=== PATIENT | male | born 1950 | race Caucasian/White ===

== ENCOUNTER → 2020-05-31 | Outpatient (CLI) | payer MEDICARE, OTHER ==
--- NOTE | 2020-05-31 12:52 | REP ---
RENAL ULTRASOUND WITH DUPLEX DOPPLER RENAL ARTERY EVALUATION: Real-time ultrasound evaluation of the kidneys is performed. The kidneys are normal size and echotexture, right kidney measuring 9.9 x 4.5 x 4.6 cm and left kidney 11.1 x 4.0 x 4.8 cm. There is no hydronephrosis bilaterally. No renal mass is seen. Real-time ultrasound evaluation and duplex Doppler interrogation of the renal arteries is performed bilaterally. Peak systolic velocity of the abdominal aorta at the level of the renal artery is 79.9 cm/s. Peak systolic velocity of the main right renal artery proximally is 87.5 cm/s. Renal to aortic ratio is 1.1. Resistive indices are measured in the upper, mid and lower thirds of the right kidney and range between 0.55 and 0.62. Acceleration times range between 0.06 to 0.11. Peak systolic velocity of a left renal artery proximally is 57.9 cm/s. Renal to aortic ratio is 0.7. Resistive indices left kidney range between 0.57 and 0.66. Acceleration times range between 0.04 and 0.06. Bilateral parvus tardus waveforms are seen, more so on the right than on the left, suggesting vessel narrowing. However, there is no direct evidence of renal artery stenosis. IMPRESSION: Bilateral tardus parvus waveforms suggest some degree of arterial narrowing. However, there is no direct evidence of significant renal artery stenosis bilaterally. Electronically Signed by Danis Bertrand MD 05/31/2020 03:31 P
== END ==
LOC: M RAD 07:22
PROVIDERS: ATTEND Family Medicine
DX: I70.1 Atherosclerosis of renal artery (principal); I15.1 Hypertension secondary to other renal disorders

== ENCOUNTER → 2020-07-22 | Outpatient (CLI) | payer MEDICARE, OTHER ==
--- NOTE | 2020-08-23 10:53 | REP ---
VISCERAL ARTERIAL DOPPLER SONOGRAPHY HISTORY: Gastroparesis with pain after eating. TECHNIQUE: Pre- and sequential postprandial Doppler assessment is performed of the proximal and mid superior mesenteric artery. Celiac axis and aorta are sampled as well. Two cans of Ensure were administered orally as a challenge meal. FINDINGS: Peak systolic flow velocity in the abdominal aorta just above the celiac axis is normal at 78 cm/s. PSV in the celiac axis is normal at 81 cm/s, EDV 19. SMA VELOCITY CHART: PROXIMAL CM/S MID CM/S Baseline (before meal) PSV 150; EDV 25 PSV 181; EDV 30 10 minutes postmeal challenge PSV 136; EDV 37 PSV 247; EDV 60 20 minutes postmeal challenge PSV 183; EDV 52 PSV 258; EDV 70 30 minutes postmeal challenge PSV 131; EDV 36 PSV 234; EDV 57 40 minutes postmeal challenge PSV 139; EDV 30 PSV 193; EDV 40 IMPRESSION: Normal physiologic Doppler response postmeal challenge. MTDD
== END ==
LOC: M RAD 06:07
PROVIDERS: ATTEND Specialist
DX: K31.84 Gastroparesis (principal); R10.31 Right lower quadrant pain

== ENCOUNTER → 2020-09-07 | Outpatient (REF) | payer MEDICARE, OTHER ==
[2020-09-15 19:08] LABS: CREATININE,RANDOM URINE 66.2 mg/dL (Not Estab.); DOPAMINE PLASMA <30 pg/mL (0-48); EPINEPHRINE PLASMA <15 pg/mL (0-62); METANEPHRINE PLASMA 28.4 pg/mL (0.0-88.0); NOREPINEPHRINE PLASMA 445 pg/mL (0-874); NORMETANEPHRINE PLASMA 91.7 pg/mL (0.0-191.8); URINE METANEPHR/CREAT RATIO 0.3 (0.0-1.0); URINE METANEPHRINES RANDOM 46 ug/L (Undefined); URINE NORMETANEPHRINES RANDOM 124 ug/L (Undefined)
== END ==
LOC: M LAB REF 17:05
PROVIDERS: ATTEND Internal Medicine Nephrology
DX: E03.9 Hypothyroidism, unspecified (principal); I12.9 Hypertensive chronic kidney disease with stage 1 through stage 4 chronic kidney disease, or unspecified chronic kidney disease; N18.2 Chronic kidney disease, stage 2 (mild)

== ENCOUNTER → 2020-09-22 | Outpatient (REF) | payer MEDICARE, OTHER ==
[2020-09-29 10:08] LABS: VANILLYLMANDELIC ACID,URINE 24 6.8 mg/24 hr (0.0-7.5)
== END ==
LOC: M LAB REF 17:08
PROVIDERS: ATTEND Internal Medicine Nephrology
DX: E03.9 Hypothyroidism, unspecified (principal); I12.9 Hypertensive chronic kidney disease with stage 1 through stage 4 chronic kidney disease, or unspecified chronic kidney disease; N18.2 Chronic kidney disease, stage 2 (mild)

== ENCOUNTER → 2021-06-20 | Outpatient (REF) | payer MEDICARE, OTHER | LOC: M LAB REF 17:15 | PROVIDERS: ATTEND Internal Medicine Nephrology | DX: E11.9 Type 2 diabetes mellitus without complications (principal) ==

== ENCOUNTER → 2023-06-12 | Day surgery (SDC) | payer MEDICARE, OTHER ==
[~2023-06-12] VITALS: Ht 177.8 cm; Wt 87.7 kg
[~2023-06-12] MED LIST: CLON-412 PO; ECOT81TA5 PO; HYDR-3911 PO; JARD1TAB3 PO; LIDOCAINE 2% 100MG/5ML SDV (FOR ANES.) As Ordered ONE; METO50TA7 PO; NS 1,000 ML IV ONE; SIMETHICONE 40MG/0.6ML DROPS 30ML As Ordered ONE; TAMS1CAP17 PO; VITA500T40 PO; propofoL 200 MG/20 ML VIAL As Ordered ONE
[2023-06-12 08:48] VITALS: TEMP 97.8
[2023-06-12 09:10] VITALS: BP 133/77; O2SAT 99
== END | disposition home or self-care (01) ==
LOC: M OPP 06:37
PROVIDERS: ATTEND Internal Medicine Gastroenterology
DX: K64.4 Residual hemorrhoidal skin tags (principal); K64.8 Other hemorrhoids; K52.9 Noninfective gastroenteritis and colitis, unspecified; K57.30 Diverticulosis of large intestine without perforation or abscess without bleeding; K44.9 Diaphragmatic hernia without obstruction or gangrene; K21.00 Gastro-esophageal reflux disease with esophagitis, without bleeding; K29.70 Gastritis, unspecified, without bleeding; K22.70 Barrett's esophagus without dysplasia; Z79.1 Long term (current) use of non-steroidal anti-inflammatories (NSAID); Z79.51 Long term (current) use of inhaled steroids; Z88.6 Allergy status to analgesic agent

== ENCOUNTER → 2023-10-02 | Outpatient (CLI) | payer MEDICARE, OTHER ==
[~2023-10-02] MED LIST changes: +BICA50TA9 PO; +HYDR50TA70 PO; +LEVO100T5 PO; -LIDOCAINE 2% 100MG/5ML SDV (FOR ANES.) As Ordered ONE; -NS 1,000 ML IV ONE; +PANT40TA29 PO; -SIMETHICONE 40MG/0.6ML DROPS 30ML As Ordered ONE; -propofoL 200 MG/20 ML VIAL As Ordered ONE
== END ==
LOC: M ONCR 12:32
PROVIDERS: ATTEND General Practice
DX: C61 Malignant neoplasm of prostate (principal); Z71.2 Person consulting for explanation of examination or test findings; Z79.84 Long term (current) use of oral hypoglycemic drugs; Z79.890 Hormone replacement therapy; Z79.899 Other long term (current) drug therapy; Z80.0 Family history of malignant neoplasm of digestive organs; Z80.3 Family history of malignant neoplasm of breast; Z88.8 Allergy status to other drugs, medicaments and biological substances

== ENCOUNTER → 2023-10-16 | Outpatient (CLI) | payer MEDICARE, OTHER | LOC: M WHC 11:23 | PROVIDERS: ATTEND Nurse Practitioner Family | DX: C61 Malignant neoplasm of prostate (principal) ==

== ENCOUNTER → 2023-10-24 | Outpatient (CLI) | payer MEDICARE, OTHER ==
[~2023-10-24] VITALS: Ht 175.3 cm; Wt 88.1 kg
[~2023-10-24] MED LIST changes: +CIPR750T2 PO; +LIDOCAINE 2% MDV 20ML VIAL XX ONE; +LORA1TAB23 PO
[2023-10-24 14:16] VITALS: BP 130/89; O2SAT 97
[2023-10-24 14:47] VITALS: BP 138/80; O2SAT 98
== END ==
LOC: M ONCR 13:31
PROVIDERS: ATTEND General Practice
DX: C61 Malignant neoplasm of prostate (principal)
CPT/HCPCS: 55874; 55876; A4648; C1889

== ENCOUNTER 2023-11-23 09:34 | Outpatient (RCR) | payer MEDICARE, OTHER ==
[~2023-11-23 09:34] MED LIST changes: -LIDOCAINE 2% MDV 20ML VIAL XX ONE
[2023-11-27] MEDS ORDERED: PYRI1TAB5 PO (16:01)
[2023-12-03] MEDS ORDERED: PYRI1TAB5 PO (13:11)
== END 2023-11-25 ==
LOC: M ONCR 09:34
PROVIDERS: ATTEND General Practice
DX: Z51.0 Encounter for antineoplastic radiation therapy (principal); C61 Malignant neoplasm of prostate

== ENCOUNTER 2024-01-03 09:38 | Outpatient (RCR) | payer MEDICARE, OTHER ==
[~2024-01-03 09:38] MED LIST changes: -HYDR-3911 PO; +HYDR50TA46 PO; +PYRI1TAB5 PO
== END 2024-01-24 ==
LOC: M ONCR 09:38
PROVIDERS: ATTEND General Practice
DX: Z51.0 Encounter for antineoplastic radiation therapy (principal); C61 Malignant neoplasm of prostate

== ENCOUNTER 2024-03-04 10:31 | Day surgery (SDC) | payer MEDICARE, OTHER ==
[~2024-03-04] VITALS: Ht 177.8 cm; Wt 89.7 kg
[~2024-03-04 10:31] MED LIST changes: +FIRM80IN5 SC; +LEVO88TA3 PO
[2024-03-04] MEDS ORDERED: propofoL 200 MG/20 ML VIAL As Ordered ONE (10:46)
[2024-03-04] MEDS: NS 1,000 ML IV ONE (10:48)
[2024-03-04 11:56] VITALS: TEMP 97.1
[2024-03-04 12:18] VITALS: BP 120/62; O2SAT 96
== END 2024-03-04 12:24 | disposition home or self-care (01) ==
LOC: M OPP 10:31
PROVIDERS: ATTEND Internal Medicine Gastroenterology
DX: K21.00 Gastro-esophageal reflux disease with esophagitis, without bleeding (principal); K31.A0 Gastric intestinal metaplasia, unspecified; K22.70 Barrett's esophagus without dysplasia; K22.2 Esophageal obstruction; K44.9 Diaphragmatic hernia without obstruction or gangrene; R13.10 Dysphagia, unspecified; E11.9 Type 2 diabetes mellitus without complications; G47.30 Sleep apnea, unspecified; Z99.89 Dependence on other enabling machines and devices; I25.10 Atherosclerotic heart disease of native coronary artery without angina pectoris; Z95.0 Presence of cardiac pacemaker; Z79.02 Long term (current) use of antithrombotics/antiplatelets; Z79.84 Long term (current) use of oral hypoglycemic drugs; Z79.890 Hormone replacement therapy; Z79.899 Other long term (current) drug therapy; Z88.8 Allergy status to other drugs, medicaments and biological substances

== ENCOUNTER → 2024-04-02 | Outpatient (CLI) | payer MEDICARE, OTHER ==
[~2024-04-02] MED LIST changes: +MESA50SU PR
== END ==
LOC: M ONCR 09:17
PROVIDERS: ATTEND General Practice
DX: C61 Malignant neoplasm of prostate (principal); R19.7 Diarrhea, unspecified; R10.31 Right lower quadrant pain; R10.32 Left lower quadrant pain; Z71.2 Person consulting for explanation of examination or test findings; Z79.818 Long term (current) use of other agents affecting estrogen receptors and estrogen levels; Z79.84 Long term (current) use of oral hypoglycemic drugs; Z79.899 Other long term (current) drug therapy; Z88.8 Allergy status to other drugs, medicaments and biological substances; Z92.3 Personal history of irradiation

== ENCOUNTER → 2024-07-03 | Outpatient (CLI) | payer MEDICARE, OTHER ==
[~2024-07-03] MED LIST changes: +BICA50TA4 PO; -BICA50TA9 PO
== END ==
LOC: M ONCR 09:39
PROVIDERS: ATTEND General Practice
DX: C61 Malignant neoplasm of prostate (principal); R30.0 Dysuria; Z79.818 Long term (current) use of other agents affecting estrogen receptors and estrogen levels; Z92.3 Personal history of irradiation; Z88.1 Allergy status to other antibiotic agents; Z79.84 Long term (current) use of oral hypoglycemic drugs; Z79.899 Other long term (current) drug therapy

== ENCOUNTER 2025-04-02 11:27 | Day surgery (SDC) | payer MEDICARE, OTHER ==
[~2025-04-02] VITALS: Ht 177.8 cm; Wt 84.4 kg
[~2025-04-02 11:27] MED LIST changes: +METF500T13 PO; +ROSU40TA81 PO; +SYNT125T PO; +VITA100093 PO; +propofoL 200 MG/20 ML VIAL As Ordered ONE
[2025-04-02] MEDS ORDERED: ePHEDrine SULFATE 25 MG/5 ML(5MG/ML) SYRINGE As Ordered ONE (13:43)
[2025-04-02 14:15] VITALS: TEMP 97.4
[2025-04-02 14:34] VITALS: BP 161/94; O2SAT 96
== END 2025-04-02 14:40 | disposition home or self-care (01) ==
LOC: M OPP 11:27
PROVIDERS: ATTEND Surgery
DX: Z12.11 Encounter for screening for malignant neoplasm of colon (principal); D12.6 Benign neoplasm of colon, unspecified; K57.30 Diverticulosis of large intestine without perforation or abscess without bleeding; K64.2 Third degree hemorrhoids; K22.70 Barrett's esophagus without dysplasia; K44.9 Diaphragmatic hernia without obstruction or gangrene; K22.2 Esophageal obstruction; I25.10 Atherosclerotic heart disease of native coronary artery without angina pectoris; I10 Essential (primary) hypertension; E78.00 Pure hypercholesterolemia, unspecified; E11.9 Type 2 diabetes mellitus without complications; E03.9 Hypothyroidism, unspecified; G47.33 Obstructive sleep apnea (adult) (pediatric); Z99.89 Dependence on other enabling machines and devices; Z86.73 Personal history of transient ischemic attack (TIA), and cerebral infarction without residual deficits; Z85.46 Personal history of malignant neoplasm of prostate; Z92.21 Personal history of antineoplastic chemotherapy; Z92.3 Personal history of irradiation; Z88.8 Allergy status to other drugs, medicaments and biological substances; Z79.84 Long term (current) use of oral hypoglycemic drugs; Z79.890 Hormone replacement therapy; Z79.899 Other long term (current) drug therapy
CPT/HCPCS: 43249; 45380; 88305; A4649

== ENCOUNTER → 2025-07-03 | Outpatient (CLI) | payer MEDICARE, OTHER ==
[~2025-07-03] MED LIST changes: -propofoL 200 MG/20 ML VIAL As Ordered ONE
== END ==
LOC: M ONCR 09:13
PROVIDERS: ATTEND General Practice
DX: C61 Malignant neoplasm of prostate (principal); Z79.818 Long term (current) use of other agents affecting estrogen receptors and estrogen levels; Z79.899 Other long term (current) drug therapy; Z92.3 Personal history of irradiation